=== PATIENT | female | born 1990 | race Caucasian/White ===

== ENCOUNTER 2018-05-31 12:05 | Outpatient (CLI) | payer OTHER | END 2018-05-31 15:00 | disposition home or self-care (01) | LOC: LAB 12:05 | DX: J11.1 Influenza due to unidentified influenza virus with other respiratory manifestations (principal) ==

== ENCOUNTER 2018-06-14 09:32 | Outpatient (CLI) | payer OTHER | END 2018-06-14 10:31 | disposition home or self-care (01) | LOC: RAD 09:32 | DX: R05 Cough (principal) ==

== ENCOUNTER 2019-06-26 10:50 | Outpatient (CLI) | payer OTHER | END 2019-06-26 11:00 | disposition home or self-care (01) | LOC: LAB 10:50 | DX: J15.7 Pneumonia due to Mycoplasma pneumoniae (principal); J11.1 Influenza due to unidentified influenza virus with other respiratory manifestations ==

== ENCOUNTER 2019-06-26 15:31 | Outpatient (CLI) | payer OTHER | END 2019-06-26 16:45 | disposition home or self-care (01) | LOC: RAD 15:31 | DX: R05 Cough (principal) ==

== ENCOUNTER 2020-08-27 11:55 | Outpatient (CLI) | payer OTHER | END 2020-08-27 11:56 | disposition home or self-care (01) | LOC: LAB 11:55 | PROVIDERS: ATTEND Internal Medicine Pulmonary Disease | DX: Z20.828 Contact with and (suspected) exposure to other viral communicable diseases (principal); R05 Cough; R06.02 Shortness of breath; R50.9 Fever, unspecified ==

== ENCOUNTER → 2020-12-09 | Outpatient (CLI) | payer OTHER ==
[~2020-12-09] MED LIST: PRENATAL 19 TA1 EACH PO
== END | disposition home or self-care (01) ==
LOC: SONOGRAMA 13:12 → MAMO-SONO 14:30
PROVIDERS: ATTEND Obstetrics & Gynecology Maternal & Fetal Medicine
DX: N60.11 Diffuse cystic mastopathy of right breast (principal); N60.19 Diffuse cystic mastopathy of unspecified breast; R07.9 Chest pain, unspecified; N63.0 Unspecified lump in unspecified breast

== ENCOUNTER 2021-02-15 06:44 | Day surgery (SDC) | payer OTHER | END 2021-02-15 13:35 | disposition home or self-care (01) | LOC: CIR.AMB 06:44 | PROVIDERS: ATTEND Orthopaedic Surgery Hand Surgery | DX: M67.431 Ganglion, right wrist (principal); Z20.822 Contact with and (suspected) exposure to COVID-19 ==

== ENCOUNTER 2021-03-15 08:00 | Outpatient (CLI) | payer OTHER | END 2021-03-15 08:05 | disposition home or self-care (01) | LOC: PPH VACUNA 08:00 | PROVIDERS: ATTEND Emergency Medicine Pediatric Emergency Medicine | DX: Z23 Encounter for immunization (principal) ==

== ENCOUNTER 2021-03-24 10:08 | Outpatient (CLI) | payer OTHER | END 2021-03-24 10:10 | disposition home or self-care (01) | LOC: PPH VACUNA 10:08 | PROVIDERS: ATTEND Emergency Medicine Pediatric Emergency Medicine | DX: Z23 Encounter for immunization (principal) ==

== ENCOUNTER 2022-03-01 08:00 | Outpatient (CLI) | payer OTHER | END 2022-03-01 08:05 | disposition home or self-care (01) | LOC: PPH VACUNA 08:00 | PROVIDERS: ATTEND Emergency Medicine Pediatric Emergency Medicine | DX: Z23 Encounter for immunization (principal) ==

== ENCOUNTER → 2022-10-26 | Outpatient (CLI) | payer OTHER | END | disposition home or self-care (01) | LOC: MRI 13:18 | PROVIDERS: ATTEND Internal Medicine Geriatric Medicine | DX: M50.10 Cervical disc disorder with radiculopathy, unspecified cervical region (principal) | CPT/HCPCS: 72141 ==

== ENCOUNTER → 2022-11-03 06:34 | Outpatient (CLI) | payer OTHER | END | disposition home or self-care (01) | LOC: LAB 06:34 | PROVIDERS: ATTEND Internal Medicine Geriatric Medicine | DX: D53.8 Other specified nutritional anemias (principal); D64.9 Anemia, unspecified ==

== ENCOUNTER → 2023-02-15 | Outpatient (CLI) | payer OTHER | END | disposition home or self-care (01) | LOC: PPH VACUNA | PROVIDERS: ATTEND Emergency Medicine Pediatric Emergency Medicine | DX: Z23 Encounter for immunization (principal) ==

== ENCOUNTER 2024-03-21 12:00 | Outpatient (CLI) | payer OTHER | END 2024-03-21 12:15 | disposition home or self-care (01) | LOC: PPH VACUNA 12:00 | PROVIDERS: ATTEND Emergency Medicine Pediatric Emergency Medicine | DX: Z23 Encounter for immunization (principal) ==

== ENCOUNTER → 2024-05-07 11:26 | Outpatient (CLI) | payer OTHER | END | disposition home or self-care (01) | LOC: RAD 11:26 | PROVIDERS: ATTEND Internal Medicine Geriatric Medicine | DX: S39.93XA Unspecified injury of pelvis, initial encounter (principal) ==

== ENCOUNTER 2025-04-10 13:30 | Outpatient (CLI) | payer OTHER | END 2025-04-10 13:40 | disposition home or self-care (01) | LOC: PPH VACUNA 13:30 | PROVIDERS: ATTEND Emergency Medicine Pediatric Emergency Medicine | DX: Z23 Encounter for immunization (principal) ==